=== PATIENT | female | born 1960 | race African-American/Black ===

== ENCOUNTER 2020-08-14 23:44 | Emergency (ER) | payer MEDICAID ==
[~2020-08-14] VITALS: Ht 172.7 cm; Wt 108.9 kg
--- NOTE | 2020-08-14 23:44 | NUR ---
[id number] FROM [facility]; AAOX3; pt to bed 7, -sob/cp, VSS. not in acute distress, placed on monitor, pending er provider robbie
[2020-08-15] MEDS: IV NS 0.9% 500 ML BAG IV ONE (00:49)
[2020-08-15 00:54] LABS: BASOPHILS # (AUTO) 0.1 /CMM (0.0-0.2); BASOPHILS % (AUTO) 0.7 % (0.0-2.0); EOSINOPHILS % (AUTO) 4.9 % (0.0-6.0); HEMATOCRIT 37 % (33-45); HEMOGLOBIN 11.4 g/dL (11.5-14.8); LYMPHOCYTES # (AUTO) 1.9 /CMM (0.8-4.8); LYMPHOCYTES % (AUTO) 21.9 % (20.0-44.0); MEAN CORPUSCULAR HGB CONC 31 g/dl (31.0-36.0); MEAN CORPUSCULAR VOLUME 81 fL (82-100); MONOCYTES # (AUTO) 0.9 /CMM (0.1-1.30); MONOCYTES % (AUTO) 10.2 % (2.0-12.0); NEUTROPHILS # (AUTO) 5.5 /CMM (1.8-8.9); NEUTROPHILS % (AUTO) 62.3 % (43.0-81.0); PLATELET COUNT (AUTO) 386 /CMM (150-450); RED BLOOD CELL COUNT(AUTO) 4.54 MIL/uL (4.0-5.2); WHITE BLOOD COUNT (AUTO) 8.9 K/uL (4.3-11.0)
[2020-08-15 01:29] LABS: CALCIUM, SERUM 9.3 mg/dL (8.5-10.1); CARBON DIOXIDE 33 mmol/L (21-32); CHLORIDE 101 mmol/L (98-107); CREATININE 0.5 mg/dL (0.6-1.3); GLUCOSE 132 mg/dL (74-106); POTASSIUM 3.6 mmol/L (3.5-5.1); SERUM AMMONIA 37 umol/L (11-32); SODIUM SERUM 142 mmol/L (136-145); UREA NITROGEN, BLOOD 9 mg/dL (7-18)
[2020-08-15 01:33] LABS: ACETAMINOPHEN < 2 ug/ml (10-30); ALANINE AMINOTRANSFERASE 21 U/L (12-78); ALBUMIN 3.1 g/dL (3.4-5.0); ALCOHOL, BLOOD < 3 mg/dL (0-0); ALKALINE PHOSPHATASE 142 U/L (46-116); ASPARTATE AMINOTRANSFERASE 14 U/L (15-37); BILIRUBIN,DIRECT 0.1 mg/dL (0.0-0.2); BILIRUBIN,TOTAL 0.3 mg/dL (0.2-1.0); THYROID STIMULATING HORMONE 0.789 uIU/mL (0.358-3.74); TOTAL PROTEIN, SERUM 8.7 g/dL (6.4-8.2)
--- NOTE | 2020-08-15 02:32 | NUR ---
urine collected and sent to lab
[2020-08-15 03:45] LABS: APPEARANCE,URINE CLOUDY (CLEAR); BILIRUBIN,URINE NEGATIVE (NEGATIVE); BLOOD, URINE LARGE Ery/uL (NEGATIVE); COLOR,URINE YELLOW (YELLOW); KETONES,URINE NEGATIVE (NEGATIVE); LEUKOCYTE ESTERASE ,URINE MODERATE (NEGATIVE); NITRITE, URINE POSITIVE (NEGATIVE); PROTEIN,URINE 30 mg/dl (NEGATIVE); UGLUCOSE NEGATIVE (NEGATIVE); UROBILINOGEN,URINE 0.2 EU/dL (0.2)
[2020-08-15 04:39] LABS: BACTERIA,URINE Many /HPF (None Seen); RBC,URINE 21-50 /HPF (0-2); SQUAMOUS EPITHELIAL CELL,UR Moderate /HPF (None Seen); WBC,URINE 51-80 /HPF (0-3)
[2020-08-15 04:40] LABS: MUCUS,URINE Few /LPF (None Seen); URINE AMORPHOUS URATE Few /HPF (None Seen)
--- NOTE | 2020-08-15 05:30 | NUR ---
Maria R eta 08
[2020-08-15] MEDS ORDERED: TRAMADOL HCL 50 MG TABLET ONE (05:42)
[2020-08-15] MEDS ORDERED: METOPROLOL TARTRATE 25 MG TABLET ONE (05:42)
--- NOTE | 2020-08-15 05:45 | NUR ---
called [facility], report given to malcolm
--- NOTE | 2020-08-15 05:58 | NUR ---
pt was requesting pain meds; snf p.o, pt takes tramadol 50mg po q6prn
[2020-08-15] MEDS: METOPROLOL TARTRATE 25 MG TABLET PO ONE (06:02)
[2020-08-15] MEDS: TRAMADOL HCL 50 MG TABLET PO ONE (06:02)
--- NOTE | 2020-08-15 08:24 | NUR ---
Patient discharged to home in stable condition. Written and verbal after care instructions given. Patient verbalizes understanding of instruction. IV removed. Catheter intact and site benign. Pressure and 4x4 applied to site. No bleeding noted.
--- NOTE | 2020-08-15 08:24 | NUR ---
PT ENROUTE TO [facility] FOR [facility].
[2020-08-15 10:36] VITALS: BP 136/99
== END 2020-08-15 08:24 | disposition home or self-care (01) ==
LOC: EDSEX 23:44 → ER 23:49
DX: N39.0 Urinary tract infection, site not specified (principal); G40.909 Epilepsy, unspecified, not intractable, without status epilepticus; I10 Essential (primary) hypertension; J44.9 Chronic obstructive pulmonary disease, unspecified; E11.9 Type 2 diabetes mellitus without complications
CPT/HCPCS: 36415; 70450; 71045; 80048; 80076; 80299; 80307 ×2; 80320; 81001; 82140; 84443; 84484; 85025; 85730; 87086; 93005; 96360; 99285; J7040; 81000-TC; G0480

== ENCOUNTER 2020-09-16 16:24 | Inpatient (IN) | payer MEDICAID, OTHER ==
[~2020-09-16] VITALS: Ht 172.7 cm; Wt 97.3 kg
--- NOTE | 2020-09-16 16:30 | NUR ---
pt [email or web address], from care facility, c/o chest pain 06/11. vs checked. iv access started. blood draw done sent to lab. pt seen by md by bedside.
[2020-09-16] MEDS ORDERED: NA P133E RC (16:39)
[2020-09-16] MEDS ORDERED: FAMO-131 PO (16:39)
[2020-09-16] MEDS ORDERED: LORA10TA7 PO (16:39)
[2020-09-16] MEDS ORDERED: APIX5TAB PO (16:39)
[2020-09-16] MEDS ORDERED: ZINC1CAP2 PO (16:39)
[2020-09-16] MEDS ORDERED: FERR325T23 PO (16:39)
[2020-09-16] MEDS ORDERED: ASPI-1420 PO (16:39)
[2020-09-16] MEDS ORDERED: TIOT18CA3 IH (16:39)
[2020-09-16] MEDS ORDERED: BACL10TA PO (16:39)
[2020-09-16] MEDS ORDERED: METO25TA20 PO (16:39)
[2020-09-16] MEDS ORDERED: MULT-594 PO (16:39)
[2020-09-16] MEDS ORDERED: MAGN400O6 PO (16:39)
[2020-09-16] MEDS ORDERED: SERT50TA PO (16:39)
[2020-09-16] MEDS ORDERED: GABA-532 PO (16:39)
[2020-09-16] MEDS ORDERED: TOLT2CAP PO (16:39)
[2020-09-16] MEDS ORDERED: IPRA3AMP23 IH (16:39)
[2020-09-16] MEDS ORDERED: OXCA300T4 PO (16:39)
[2020-09-16] MEDS ORDERED: BISA10SU11 RC (16:39)
[2020-09-16] MEDS ORDERED: ARGI1POW13 PO (16:39)
[2020-09-16] MEDS ORDERED: AMIN30LI27 PO (16:39)
[2020-09-16] MEDS ORDERED: ASCO-352 PO (16:39)
[2020-09-16] MEDS ORDERED: RISP0.2515 PO (16:39)
[2020-09-16] MEDS ORDERED: ACETAMINOPHEN 325 MG TABLET PO ONE (17:30)
[2020-09-16 17:32] LABS: CALCIUM, SERUM 9.3 mg/dL (8.5-10.1); CARBON DIOXIDE 35 mmol/L (21-32); CHLORIDE 101 mmol/L (98-107); CREATININE 0.4 mg/dL (0.6-1.3); GLUCOSE 95 mg/dL (74-106); POTASSIUM 3.3 mmol/L (3.5-5.1); SODIUM SERUM 140 mmol/L (136-145); UREA NITROGEN, BLOOD 13 mg/dL (7-18)
--- NOTE | 2020-09-16 17:32 | NUR ---
pt keeps taking off her bp cuff, stated that it hurts her when it squeezes her arm.
[2020-09-16] MEDS ORDERED: ACETAMINOPHEN ES 500 MG TABLET ONE (17:39)
[2020-09-16] MEDS ORDERED: methylPREDNISolone SOD SUCC 125 MG/2ML VIAL ONE (18:29)
[2020-09-16] MEDS ORDERED: methylPREDNISolone SOD SUCC 125 MG/2ML VIAL IV ONE (18:30)
[2020-09-16] MEDS ORDERED: ALBUTEROL SULFATE INH 18 GM HFA.AER.AD IH PRN (18:30)
--- NOTE | 2020-09-16 18:42 | NUR ---
covid swab done sent to lab
--- NOTE | 2020-09-16 19:14 | NUR ---
PT AAOX3, VSS, RESPIRATIONS EVEN AND UNLABORED ON 2 LPM VIA N/C SATTING 96%. PT CONNECTED TO THE FOOD DEHYDRATOR OPERATOR AND POX. WILL CONTINUE TO MONITOR
--- NOTE | 2020-09-16 19:23 | NUR ---
SPOKE W/ FABRICE FROM [facility] FOR CLINICAL INFORMATION.
--- NOTE | 2020-09-16 19:51 | NUR ---
CALL FROM LAB. RAPID COVID NEGATIVE.
[2020-09-16 20:00] LABS: BASOPHILS % (AUTO) 0.3 % (0.0-2.0); EOSINOPHILS % (AUTO) 3.2 % (0.0-6.0); HEMATOCRIT 33 % (33-45); HEMOGLOBIN 10.1 g/dL (11.5-14.8); LYMPHOCYTES # (AUTO) 1.5 /CMM (0.8-4.8); LYMPHOCYTES % (AUTO) 12.6 % (20.0-44.0); MEAN CORPUSCULAR HGB CONC 31 g/dl (31.0-36.0); MEAN CORPUSCULAR VOLUME 80 fL (82-100); MONOCYTES # (AUTO) 0.5 /CMM (0.1-1.30); NEUTROPHILS # (AUTO) 9.3 /CMM (1.8-8.9); NEUTROPHILS % (AUTO) 79.9 % (43.0-81.0); PLATELET COUNT (AUTO) 323 /CMM (150-450); RED BLOOD CELL COUNT(AUTO) 4.07 MIL/uL (4.0-5.2); WHITE BLOOD COUNT (AUTO) 11.6 K/uL (4.3-11.0)
[2020-09-16] MEDS ORDERED: AZITHROMYCIN 500 MG in IV D5W 250 ML IV ONE (21:30)
[2020-09-16] MEDS ORDERED: ONDANSETRON HCL/PF 4 MG/2 ML VIAL IVP PRN (21:30)
[2020-09-16] MEDS ORDERED: ACETAMINOPHEN 325 MG TABLET PO PRN (21:30)
[2020-09-16] MEDS ORDERED: MAG HYDROX/AL HYDROX/SIMETH 30 ML UDC PO PRN (21:30)
[2020-09-16] MEDS ORDERED: Z GUARD REMEDY 2 OZ OINT TP PRN (21:30)
[2020-09-16] MEDS ORDERED: MAGNESIUM HYDROXIDE 30 ML UDC PO PRN (21:30)
[2020-09-16] MEDS ORDERED: ZOLPIDEM TARTRATE 5 MG TABLET PO PRN (21:30)
[2020-09-16] MEDS ORDERED: BISACODYL SUPP (10 MG) 10 MG/SUPP.RECT SUPP.RECT RC PRN (21:30)
[2020-09-16] MEDS ORDERED: NA PHOS,M-B/NA PHOS,DI-BA 1 EA ENEMA RC PRN (21:30)
--- NOTE | 2020-09-16 21:52 | NUR ---
REPORT GIVEN TO CRISTIANO SMALL FOR MIRTHA
[2020-09-16] MEDS ORDERED: CEFTRIAXONE 1 G VIAL ONE (22:09)
--- NOTE | 2020-09-16 22:40 | NUR ---
PT WAS TRANSFERRED TO 201 UNDER ACLS
--- NOTE | 2020-09-16 22:53 | NUR ---
rn notes: pt arrived at 2240 via stretcher. pt on 3l oxygen via nc. keane catheter in placed, from facility. inventory of belongings performed by valerio duff. right ac g 20, hl. a/o x3. respirations evena nd unlabored. per report pt is desat to low 80's on ra. safety precautions for fall initiated, call light in reach, will continue monitoring pt. report given to fartun lock for terry.
--- NOTE | 2020-09-16 23:00 | NUR ---
RN OPENING NOTE RECEIVED PATIENT IN BED NEW ADMIT ALERT ORIENTED X3 VERBALLY RESPONSIVE NO SOB NOT ACUTE DISTRESS NOTED,ON 3L OXYGEN VIA NASAL CANNULA,O2:92% IV SITE IS LEFT AND RIGHT AC INTACT PATENT,FLUSHED.PATIENT HAS MULTIPLIES OPEN WOUNDS,SUPRAPUBIC CATHETER, URINE DRAINING ORANGE AND CLEAR,PATIENT HAS COLOSTOMY ON LEFT LOWER ABDOMEN,SAFETY MEASURE IMPLEMENT,BED IS IN LOW POSITON AND LOCKED,CALL LIGHT WITHIN REACH,CONTINUE TO MONITOR.
[2020-09-16] MEDS ORDERED: AZITHROMYCIN 250 MG TABLET ONE (23:25)
[2020-09-16] MEDS ORDERED: AZITHROMYCIN 500 MG VIAL ONE (23:59)
[2020-09-17] VITALS (11 sets, daily range): BP systolic 114–156; BP diastolic 64–89
[2020-09-17] MEDS ORDERED: ALBUTEROL FS 2.5 MG/3 ML VIAL.NEB NEB SCH (01:00)
[2020-09-17] MEDS ORDERED: IPRATROPIUM NEB FS 0.5 MG/2.5 ML AMPUL.NEB NEB SCH (01:00)
[2020-09-17] MEDS: HYDROCODONE/APAP 5/325MG TABLET PO PRN ×3 (02:32→15:06)
[2020-09-17 04:58] LABS: BASOPHILS # (AUTO) 0.1 /CMM (0.0-0.2); HEMATOCRIT 35 % (33-45); HEMOGLOBIN 10.9 g/dL (11.5-14.8); LYMPHOCYTES # (AUTO) 0.8 /CMM (0.8-4.8); LYMPHOCYTES % (AUTO) 7.9 % (20.0-44.0); MEAN CORPUSCULAR HGB CONC 31 g/dl (31.0-36.0); MEAN CORPUSCULAR VOLUME 81 fL (82-100); MONOCYTES # (AUTO) 0.1 /CMM (0.1-1.30); MONOCYTES % (AUTO) 1.1 % (2.0-12.0); NEUTROPHILS # (AUTO) 8.9 /CMM (1.8-8.9); PLATELET COUNT (AUTO) 339 /CMM (150-450); RED BLOOD CELL COUNT(AUTO) 4.36 MIL/uL (4.0-5.2); WHITE BLOOD COUNT (AUTO) 9.9 K/uL (4.3-11.0)
[2020-09-17 05:09] LABS: CALCIUM, SERUM 9.7 mg/dL (8.5-10.1); CREATININE 0.3 mg/dL (0.6-1.3); MAGNESIUM 2.1 mg/dL (1.8-2.4); PHOSPHORUS 2.6 mg/dL (2.5-4.9); POTASSIUM 3.8 mmol/L (3.5-5.1)
--- NOTE | 2020-09-17 06:38 | NUR ---
RN CLOSING NOTE PATIENT REMAINS ALERT ORIENTED X3 VERBALLY RESPONSIVE ON MONITORING FOR R/O COVID AND CONTACT/DROPLET ISOLATION ON 3L OXYGEN VIA NASAL CANNULA,NO SOB NOT ACUTE DISTRESS NOTED,WOUND ON SACRUM AREA KEEP CLEAN AND DRY ALL THE TIME,COVERED BY DRY DRESSING,ALL DUE MEDS GIVEN MD ORDERED,SHE TOLERATED WELL,IMPLEMENTED SAFETY MEASURE,BED IN LOW POSITION AND LOCKED,BED ALARM IS ON KEEP,CALL LIGHT WITHIN REACH, ALL NEEDS MET.ENDORSE NEXT COMING SHIFT FOR CONTINUATION OF CARE.
--- NOTE | 2020-09-17 07:39 | NUR ---
PLATE HANGER OPEN NOTES PATIENT IS AWAKE IN BED A/O X 3 WITH NO SIGNS OF DISTRESS IN 3L OF NASAL CANNULA. TELE MONITOR SR. SUPRAPUBIC CATHETER INTACT. COLOSTOMY INTACT. NO COMPLAIN OF PAIN AT THIS MOMENT. SAFETY MEASURES ARE APPLIED, BED IS IN THE LOWEST POSITION, LOCKED, AND SIDE RAILS UP X 2. CALL LIGHT WITHIN REACH. WILL CONTINUE TO MONITOR.
[2020-09-17] MEDS: ZINC SULFATE 220 MG CAPSULE PO SCH (08:25)
[2020-09-17] MEDS: ASCORBIC ACID 500 MG TABLET PO SCH ×2 (08:26→16:59)
[2020-09-17] MEDS: GABAPENTIN 100 MG CAPSULE PO SCH ×3 (08:26→16:58)
[2020-09-17] MEDS: FERROUS SULFATE (325 MG) 325 MG/TAB TABLET PO SCH (08:26)
--- NOTE | 2020-09-17 08:26 | NUR ---
RT HHN tx not given at this time due to pending COVID results. No SOB or respiratory distress noted at this time.
[2020-09-17] MEDS: MULTIVITAMINS,THERAGRAN 1 UDTAB TABLET PO SCH (08:27)
[2020-09-17] MEDS: FAMOTIDINE (20 MG) 20 MG TABLET PO SCH ×2 (08:28→16:58)
[2020-09-17] MEDS: risperiDONE 1 MG TABLET PO SCH ×2 (08:29→16:59)
[2020-09-17] MEDS: ASPIRIN EC 81 MG TABLET.DR PO SCH (08:29)
[2020-09-17] MEDS: LORATADINE 10 MG TABLET PO SCH (08:30)
[2020-09-17] MEDS: BACLOFEN (10 MG) 10 MG TABLET PO SCH ×3 (08:30→16:59)
[2020-09-17] MEDS: SERTRALINE HCL 50 MG TABLET PO SCH (08:30)
[2020-09-17] MEDS: MAGNESIUM HYDROXIDE 30 ML UDC PO SCH (08:33)
[2020-09-17] MEDS: TOLTERODINE 2 MG CAP.SR PO SCH (08:34)
[2020-09-17] MEDS: APIXABAN 5 MG TABLET PO SCH (08:36)
[2020-09-17] MEDS: METOPROLOL TARTRATE 25 MG TABLET PO SCH ×2 (08:47→17:00)
[2020-09-17] MEDS: OXCARBAZEPINE 150 MG TABLET PO SCH ×2 (08:47→16:59)
[2020-09-17] MEDS ORDERED: Medication Not On Formulary EA (Arginine/Ascorbate Sod/Vite AC (Arginaid Powder) 1 EACH) PO SCH (09:00)
[2020-09-17] MEDS ORDERED: methylPREDNISolone SOD SUCC 40 MG/ML VIAL IV SCH (09:00)
--- NOTE | 2020-09-17 09:37 | NUR ---
WOUND CARE CONSULT: REVIEWED CHART, NURSING DOCUMENTATION AND PHOTOS WHICH INDICATE BREASTFOLD RASHES, SACRAL AND BILATERAL BUTTOCK FULL THICKNESS WOUNDS AND SCARRING, PRESENT ON ADMISSION. RECOMMENDATIONS MADE FOR SKIN PROTECTION AND WOUND CARE. DISCUSSED WITH NURSING STAFF. DR GRISELDA HERNANDEZ NOTIFIED OF SURGICAL CONSULT REQUEST. FIRST STEP LOW AIRLOSS MATTRESS IS ON ORDER. MD IN AGREEMENT WITH PLAN OF CARE.
--- NOTE | 2020-09-17 09:59 | NUR ---
[facility] [phone] spoke to New and verified date for Flu vaccine as Aug and also no Pneumonia vaccine given to her yet.
[2020-09-17] MEDS ORDERED: HYDROGEL DRESSING 90 GM TUBE TP PRN (10:00)
[2020-09-17] MEDS: HYDROGEL DRESSING 90 GM TUBE TP SCH (10:54)
[2020-09-17] MEDS: DAKINS QUARTER STRENGTH (0.125%) 480 ML BOTTLE TOP SCH (12:18)
[2020-09-17] MEDS: IPRATROPIUM/ALBUTEROL INHALER IH SCH ×2 (12:36→17:03)
[2020-09-17] MEDS: PROSOURCE / PROSTAT (PYXIS) 30 ML UDC PO SCH (12:54)
[2020-09-17] MEDS: CLOTRIMAZOLE 1% 15 GM TUBE TP SCH (17:03)
--- NOTE | 2020-09-17 18:49 | NUR ---
CLUB LOUNGE ATTENDANT CLOSING NOTES PATIENT IS AWAKE IN BED A/O X 3 WITH NO SIGNS OF DISTRESS ON 4L OF NASAL CANNULA SPO2 97%. TELE MONITOR. SUPRAPUBIC CATHETER INTACT. COLOSTOMY INTACT. NO COMPLAIN OF PAIN AT THIS MOMENT. PATIENT REMAINED STABLE THROUGH OUT SHIFT. PATIENT KEPT CLEAN AND DRY. ALL NEEDS, CARE, TREATMENT AND MEDICATIONS ADMINISTERED ANTICIPATED PER ORDER. SAFETY MEASURES ARE APPLIED. BED IS IN LOWEST LOCKED POSITION WITH SIDE RAILS UP X 2 FOR SAFETY. CALL LIGHT IS WITHIN REACH. WILL ENDORSE TO THE SAP INTEGRATION ARCHITECT NURSE.
--- NOTE | 2020-09-17 19:30 | NUR ---
TELE/RN OPENING NOTES: RECEIVED PATIENT AWAKE IN BED A/O X 3. VERBALLY RESPONSIVE AND ABLE TO MAKE NEEDS KNOWN. NO SIGNS OF DISTRESS. ON 4L OF NASAL CANNULA SPO2 97%. SUPRAPUBIC CATHETER INTACT DRAINING. COLOSTOMY INTACT. NO COMPLAINS OF PAIN AT THIS TIME. PATIENT STABLE AT THIS TIME. SAFETY MEASURES ARE IN PLACE. BED IS IN LOWEST LOCKED POSITION WITH SIDE RAILS UP X 2 FOR SAFETY. CALL LIGHT IS WITHIN REACH. WILL CONTINUE TO MONITOR ACCORDINGLY.
[2020-09-17] MEDS: AZITHROMYCIN 250 MG TABLET PO SCH (21:46)
--- NOTE | 2020-09-17 22:10 | NUR ---
TELE/RN NOTES: REPORT GIVEN TO CRISTIANO HENDERSON FOR MIRTHA. PT IS NEGATIVE COVID PCR. TRANSFERRED TO [facility] AND LEFT UNIT AT 2210. CONNECTED TO OXYGEN 4L VIA NC. TRANSFERRED VIA ACLS. PT STABLE. NO C/O PAIN AT THIS TIME. SLEEPING AND DOESN'T WANT TO BE BOTHERED. EXPLAINED TO PATIENT SHE IS GONNA BE TRANSFERRED TO [facility]. PER PT"YEAH STOP WAKING ME UP, LET ME SLEEP".
--- NOTE | 2020-09-17 22:30 | NUR ---
TELE/RN NOTES RECEIVED REPORT FOR CRISTIANO GRUBER AT 2200HRS PATIENT WILL BE TRANSFERRED TO ROOM 314-1. PATIENT BROUGHT TO UNIT AT 2110HRS VIA BED ACLS PROTOCOL. PATIENT SUSTAINED NO INJURIES DURING TRANSPORT. PATIENT IS ALERT AND ORIENTED X 3. BREATHING IS EVEN AND UNLABORED, NO SIGNS OF RESPIRATORY DISTRESS NOTED. PATIENT IS TOLERATING 4L OF OXYGEN WELL. VITAL SIGNS ARE WNL. PATIENT STATES NO PAIN AT THIS TIME. PATIENT HAS IV ACCESS ON LEFT FOREARM INTACT SL. SAFETY MEASURES ARE IN PLACE, BED IS LOCKED AND PLACED IN THE LOW POSITION, SIDE RAILS UP X 2, BED ALARM ON. CALL LIGHT IS WITHIN REACH. WILL CONTINUE TO MONITOR.
[2020-09-18] VITALS: BP 116/68
[2020-09-18] MEDS: IPRATROPIUM/ALBUTEROL INHALER IH SCH ×4 (00:29→18:34)
[2020-09-18 04:00] VITALS: BP 122/63
[2020-09-18] MEDS: HYDROCODONE/APAP 5/325MG TABLET PO PRN ×3 (05:02→23:03)
--- NOTE | 2020-09-18 05:10 | NUR ---
TELE/RN NOTES PATIENT COMPLAINING OF ABDOMINAL PAIN. GIVEN NORCO 5MG PO, V/S ARE STABLE. WILL CONTINUE TO MONITOR.
--- NOTE | 2020-09-18 06:35 | NUR ---
TELE/RN CLOSING NOTES PATIENT IN BED SLEEPING, EASILY TO AROUSE. PATIENT IS ALERT AND ORIENTED X 3. NO SIGNS OF SOB OR RESPIRATORY DISTRESS NOTED. BREATHING IS EVEN AND UNLABORED. PATIENT IN NO SIGNS OF DISTRESS. TELE READING SR 78. PATIENT HAS IV ACCESS ON LEFT FOREARM INTACT. ALL NEEDS HAVE BEEN MET DURING SHIFT. SAFETY MEASURES ARE IN PLACE, BED IS LOCKED AND PLACED IN THE LOW POSITION, SIDE RAILS UP X 2, BED ALARM ON. CALL LIGHT IS WITHIN REACH. WILL ENDORSE CARE TO DAY SHIFT.
[2020-09-18 06:49] LABS: BASOPHILS % (AUTO) 0.3 % (0.0-2.0); EOSINOPHILS % (AUTO) 1.2 % (0.0-6.0); HEMATOCRIT 33 % (33-45); HEMOGLOBIN 10.1 g/dL (11.5-14.8); LYMPHOCYTES # (AUTO) 2.3 /CMM (0.8-4.8); LYMPHOCYTES % (AUTO) 24.1 % (20.0-44.0); MEAN CORPUSCULAR HGB CONC 31 g/dl (31.0-36.0); MEAN CORPUSCULAR VOLUME 80 fL (82-100); MONOCYTES % (AUTO) 10.2 % (2.0-12.0); NEUTROPHILS # (AUTO) 6.2 /CMM (1.8-8.9); NEUTROPHILS % (AUTO) 64.2 % (43.0-81.0); PLATELET COUNT (AUTO) 327 /CMM (150-450); RED BLOOD CELL COUNT(AUTO) 4.13 MIL/uL (4.0-5.2); WHITE BLOOD COUNT (AUTO) 9.6 K/uL (4.3-11.0)
[2020-09-18 07:34] LABS: CALCIUM, SERUM 9.2 mg/dL (8.5-10.1); CREATININE 0.3 mg/dL (0.6-1.3); MAGNESIUM 2.3 mg/dL (1.8-2.4); PHOSPHORUS 4.1 mg/dL (2.5-4.9); POTASSIUM 3.6 mmol/L (3.5-5.1)
--- NOTE | 2020-09-18 07:57 | NUR ---
BRIDGE MECHANIC OPENING NOTES RECEIVED PATIENT IN BED, ASLEEP. PATIENT ON OXYGEN THERAPY AT 4 LPM VIA NASAL CANNULA. BREATHING EVEN AND UNLABORED; NO SOB NOTED AT THIS TIME. NO SIGNS OF PAIN SUCH FACIAL GRIMACING, MOANING OR GUARDING. LFA IV ACCESS PRESENT AND INTACT, SL. SAFETY PRECAUTIONS IN PLACE; BED IN LOW POSITION AND LOCKED, RAILS UP X2, CALL LIGHT WITHIN REACH. WILL CONTINUE TO MONITOR PATIENT.
[2020-09-18 08:00] VITALS: BP 145/77
[2020-09-18] MEDS ORDERED: methylPREDNISolone SOD SUCC 125 MG/2ML VIAL IV SCH (09:00)
[2020-09-18] MEDS: HYDROGEL DRESSING 90 GM TUBE TP SCH (09:18)
[2020-09-18] MEDS: CLOTRIMAZOLE 1% 15 GM TUBE TP SCH ×2 (09:18→16:33)
[2020-09-18] MEDS: DAKINS QUARTER STRENGTH (0.125%) 480 ML BOTTLE TOP SCH (09:18)
[2020-09-18] MEDS: MAGNESIUM HYDROXIDE 30 ML UDC PO SCH (09:29)
[2020-09-18] MEDS: TOLTERODINE 2 MG CAP.SR PO SCH (09:30)
[2020-09-18] MEDS: risperiDONE 1 MG TABLET PO SCH ×2 (09:30→16:49)
[2020-09-18] MEDS: SERTRALINE HCL 50 MG TABLET PO SCH (09:30)
[2020-09-18] MEDS: MULTIVITAMINS,THERAGRAN 1 UDTAB TABLET PO SCH (09:32)
[2020-09-18] MEDS: ASCORBIC ACID 500 MG TABLET PO SCH ×2 (09:32→16:50)
[2020-09-18] MEDS: FAMOTIDINE (20 MG) 20 MG TABLET PO SCH ×2 (09:32→16:51)
[2020-09-18] MEDS: FERROUS SULFATE (325 MG) 325 MG/TAB TABLET PO SCH (09:33)
[2020-09-18] MEDS: AZITHROMYCIN 250 MG TABLET PO SCH (09:33)
[2020-09-18] MEDS: METOPROLOL TARTRATE 25 MG TABLET PO SCH ×2 (09:33→16:50)
[2020-09-18] MEDS: LORATADINE 10 MG TABLET PO SCH (09:34)
[2020-09-18] MEDS: ASPIRIN EC 81 MG TABLET.DR PO SCH (09:34)
[2020-09-18] MEDS: BACLOFEN (10 MG) 10 MG TABLET PO SCH ×3 (09:34→16:50)
[2020-09-18] MEDS: GABAPENTIN 100 MG CAPSULE PO SCH ×3 (09:35→16:51)
[2020-09-18] MEDS: ZINC SULFATE 220 MG CAPSULE PO SCH (09:35)
[2020-09-18] MEDS: OXCARBAZEPINE 150 MG TABLET PO SCH ×2 (09:35→16:50)
[2020-09-18] MEDS: APIXABAN 5 MG TABLET PO SCH (09:36)
[2020-09-18] MEDS: PROSOURCE / PROSTAT (PYXIS) 30 ML UDC PO SCH (09:37)
[2020-09-18 11:35] LABS: ABG BASE EXCESS 9.7 mmol/L; ABG OXYGEN SATURATION 97.5 % (92.0-98.5); ABG PH 7.475 (7.350-7.450); ABG PO2 93.6 mmHg (75.0-100.0); AaDO2 107.4 mmHg; COHb 1.1 % (0.5-1.5); O2Hb 96.4 % (94.0-97.0); SITE, ABG Right Radial; VENT MODE, BG Nasal Cannula
--- NOTE | 2020-09-18 15:30 | NUR ---
CHROME WORKER NOTES PATIENT DISLODGED HER IV LINE. PATIENT IS HARD STICK. MULTIPLE ATTEMPTS WERE UNSUCCESSFUL. NO MIDLINE ORDER; MD AWARE. PER MD OK WITH NO LINE SINCE SHE IS NOT ON ANY FLUIDS.
[2020-09-18 16:00] VITALS: BP 122/66
--- NOTE | 2020-09-18 18:52 | NUR ---
MANAGER COMPLIANCE CLOSING NOTES PATIENT IN BED, AWAKE, A/O X3 AND WATCHING TV. PATIENT ON OXYGEN THERAPY AT 4 LPM VIA NASAL CANNULA. BREATHING EVEN AND UNLABORED; NO SOB NOTED DURING SHIFT. NO COMPLAINS OF PAIN AT THIS MOMENT. IV ACCESS MISSING; PATIENT HARD STICK; MD AWARE, REFUSED MIDLINE INSERTION. OLIVAS CATH IN PLACE DRAINING LAURA URINE WITH AN OUTPUT OF 1700 MLS. ALL NEEDS ATTENDED THROUGHOUT THE DAY. SAFETY PRECAUTIONS IN PLACE; BED IN LOW POSITION AND LOCKED, RAILS UP X2, CALL LIGHT WITHIN REACH. WILL ENDORSE TO BLADE ALIGNER NURSE.
--- NOTE | 2020-09-18 19:40 | NUR ---
TELERN FULLY AWAKE, SOB ON MINIMAL EXERTION. 02 MAINTAINED. ALL NEEDS ATTENDED. APPEARS COMFORTABLE OF THIS TIME. DISCUSSED PLAN OF CARE AND MEDICATION REGIMEN WELL UNDERSTOOD. KEPT DRY CLEAN AND COMFORTABLE. SR WITH OCC PVC AT RATE 88. CONTINUED MONITORING.
[2020-09-18 20:00] VITALS: BP 129/55
[2020-09-18 20:03] VITALS: BP 129/55
--- NOTE | 2020-09-18 23:08 | NUR ---
TELERN VERBALIZES BACK AND STOMACH PAIN, MEDICATED WITH NORCO 1 TAB ORDERED. TO CONTINUE
[2020-09-19] VITALS: BP 129/71
--- NOTE | 2020-09-19 00:32 | NUR ---
TELERN REFUSED COMBIVENT, STATED NOT FAMILIAR WITH MED AND HAS NO NAME. AGREED TO HAVE HER COLOSTOMY CHECKED, EMPTY THIS TIME. SP CATHETER DRAINING.
[2020-09-19 04:00] VITALS: BP 162/95
[2020-09-19] MEDS: IPRATROPIUM/ALBUTEROL INHALER IH SCH ×3 (06:00→12:00)
--- NOTE | 2020-09-19 06:00 | NUR ---
TELERN SCOTT DECLINED STILL , WILL HAVE PHARMACY REPLACE MED. NO SOB SEEN. 02 AT 3 LITERS MAINTAINED.
--- NOTE | 2020-09-19 06:25 | NUR ---
TELERN DECLINED AM CARE.
[2020-09-19 08:00] VITALS: BP 128/73
--- NOTE | 2020-09-19 08:00 | NUR ---
RN Opening Note Received patient in bed, AO x 3, able to responds all stimuli, does no appears pain or discomfort. Respiratory even and unlabored with oxygen at 3LPM, no distress or SOB observed. Skin is warm to touch keep clean/dry reposition provided, pt has no IV site and MD aware. Kept locked bed with elevated HOB for ensure airway and aspiration precaution and lowest position for safety. Call light within reach, will continue to monitor.
[2020-09-19 08:52] LABS: ABG BASE EXCESS 8.7 mmol/L; ABG OXYGEN SATURATION 94.5 % (92.0-98.5); ABG PCO2 56.1 mmHg (35.0-45.0); ABG PH 7.411 (7.350-7.450); ABG PO2 71.5 mmHg (75.0-100.0); AaDO2 61.9 mmHg; COHb 1.2 % (0.5-1.5); MetHb 0.2 % (0.0-1.5); O2Hb 93.2 % (94.0-97.0); SITE, ABG Left Radial
[2020-09-19] MEDS ORDERED: predniSONE 10 MG TABLET PO SCH (09:00)
[2020-09-19] MEDS: ASPIRIN EC 81 MG TABLET.DR PO SCH (09:25)
[2020-09-19] MEDS: MAGNESIUM HYDROXIDE 30 ML UDC PO SCH (09:25)
[2020-09-19] MEDS: FERROUS SULFATE (325 MG) 325 MG/TAB TABLET PO SCH (09:25)
[2020-09-19] MEDS: AZITHROMYCIN 250 MG TABLET PO SCH (09:25)
[2020-09-19] MEDS: ZINC SULFATE 220 MG CAPSULE PO SCH (09:25)
[2020-09-19] MEDS: LORATADINE 10 MG TABLET PO SCH (09:25)
[2020-09-19] MEDS: TOLTERODINE 2 MG CAP.SR PO SCH (09:25)
[2020-09-19 09:26] VITALS: BP 128/73
[2020-09-19] MEDS: MULTIVITAMINS,THERAGRAN 1 UDTAB TABLET PO SCH (09:26)
[2020-09-19] MEDS: METOPROLOL TARTRATE 25 MG TABLET PO SCH (09:26)
[2020-09-19] MEDS: FAMOTIDINE (20 MG) 20 MG TABLET PO SCH (09:26)
[2020-09-19] MEDS: SERTRALINE HCL 50 MG TABLET PO SCH (09:26)
[2020-09-19] MEDS: BACLOFEN (10 MG) 10 MG TABLET PO SCH ×2 (09:27→12:24)
[2020-09-19] MEDS: OXCARBAZEPINE 150 MG TABLET PO SCH (09:27)
[2020-09-19] MEDS: APIXABAN 5 MG TABLET PO SCH (09:28)
[2020-09-19] MEDS: risperiDONE 1 MG TABLET PO SCH (09:29)
[2020-09-19] MEDS: GABAPENTIN 100 MG CAPSULE PO SCH ×2 (09:29→12:24)
[2020-09-19] MEDS: ASCORBIC ACID 500 MG TABLET PO SCH (09:29)
[2020-09-19] MEDS: DAKINS QUARTER STRENGTH (0.125%) 480 ML BOTTLE TOP SCH (09:39)
[2020-09-19] MEDS: HYDROGEL DRESSING 90 GM TUBE TP SCH (09:39)
[2020-09-19] MEDS: PROSOURCE / PROSTAT (PYXIS) 30 ML UDC PO SCH (09:40)
[2020-09-19] MEDS: CLOTRIMAZOLE 1% 15 GM TUBE TP SCH (09:40)
[2020-09-19] MEDS: HYDROCODONE/APAP 5/325MG TABLET PO PRN (13:44)
--- NOTE | 2020-09-19 14:35 | NUR ---
Patient d/c to [facility] given report :Shannon/RN.
--- NOTE | 2020-09-19 15:35 | NUR ---
2 hotel clerk picked up patient, patient refused take wound picture on left buttock and sacral due to uncomfortable position. Provided dressing change before patient leave, patient in stable condition.
== END 2020-09-19 15:00 | DRG 140 ==
LOC: ER 16:30 → TELE2 21:52 → TELE 09-17 22:35
PROVIDERS: ADMIT Family Medicine
DX: J44.1 Chronic obstructive pulmonary disease with (acute) exacerbation (principal); E11.9 Type 2 diabetes mellitus without complications; D72.829 Elevated white blood cell count, unspecified; D63.8 Anemia in other chronic diseases classified elsewhere; G40.909 Epilepsy, unspecified, not intractable, without status epilepticus; J96.01 Acute respiratory failure with hypoxia; E66.2 Morbid (severe) obesity with alveolar hypoventilation; Z68.31 Body mass index [BMI] 31.0-31.9, adult; E87.6 Hypokalemia; I10 Essential (primary) hypertension; Z79.51 Long term (current) use of inhaled steroids; Z79.82 Long term (current) use of aspirin; Z79.899 Other long term (current) drug therapy; Z87.891 Personal history of nicotine dependence; D50.9 Iron deficiency anemia, unspecified; T14.8XXA Other injury of unspecified body region, initial encounter; X58.XXXA Exposure to other specified factors, initial encounter; Y92.9 Unspecified place or not applicable; Z90.49 Acquired absence of other specified parts of digestive tract; Z89.021 Acquired absence of right finger(s); F10.21 Alcohol dependence, in remission
CPT/HCPCS: 36415; 36600; 71045-TC; 80048-TC; 80061-TC; 82803-TC; 83735-TC; 83880; 84100-TC; 84484-TC; 85025-TC; 85378-TC; 87081-TC; 93307-TC; A6248; A6253; A6403; C9803; G0378; J0456; J0696; J2920; J2930; J7060; U0003